=== PATIENT | male | born 1995 | race Caucasian/White ===

== ENCOUNTER 2022-08-06 16:38 | Emergency (ER) | payer OTHER ==
[2022-08-06] MEDS ORDERED: TAMSULOSIN 0.4 MG CAP.ER.24H PO STA (19:36)
[2022-08-06] MEDS ORDERED: MORPHINE SULFATE 4 MG/ML SYRINGE IV STA (19:36)
[2022-08-06] MEDS ORDERED: KETOROLAC 15 MG/ML 1 ML VIAL IVP STA (19:36)
[2022-08-06] MEDS ORDERED: ONDANSETRON 4 MG/2 ML VIAL IVP STA (19:36)
--- NOTE | 2022-08-06 19:38 | ED ---
Abdominal Pain HPI - General Chief Complaint: Abdominal Pain Stated Complaint: Kidney Stone Time Seen by Provider: 08/06/22 19:26 Source: patient, RN notes reviewed Mode of arrival: ambulatory Limitations: no limitations - History of Present Illness Initial Comments: Patient presents with left flank pain for 2 days. Patient was seen at [facility] in [facility] yesterday and diagnosed with a kidney stone. Patient states the pain became worse today. Patient states that he was told that the stone was too big to pass. He was told to follow-up with his regular physician today. Patient made a call to his primary and was sent here for evaluation. He denies any hematuria. No fever. He did have some nausea and vomiting., Sharp left flank pain with no alleviating or exacerbating factors. Waxes and wanes in intensity. No headache, no fever or chills, no changes in vision or hearing, no sore throat or difficulty with speech, no neck pain, no chest pain or shortness of breath, no abdominal pain, no nausea or vomiting, no changes in urination or bowel movements, no numbness or tingling, no extremity pain, no skin rashes or le sions. Past medical, surgical, social, and family history reviewed. MD Complaint: flank pain - Related Data Previous Rx's Medication Instructions Recorded HYDROcodone/APAP 5-325MG [[place] 1 tab PO Q6HR PRN 3 Days #12 tab 08/06/22 5-325] Tamsulosin [Flomax] 0.4 mg PO DAILY #7 cap 08/06/22 Allergies Allergy/AdvReac Type Severity Reaction Status Date / Time adhesive tape Allergy Rash/Hives Verified 08/06/22 17:06 Review of Systems ROS Statement: Those systems with pertinent positive or pertinent negative responses have been documented in the HPI. ROS Other: All systems not noted in ROS Statement are negative. Past Medical History Past Medical History: No Reported History History of Any Multi-Drug Resistant Organisms: None Reported Past Surgical History: Adenoidectomy, Orthopedic Surgery, Tonsillectomy Past Psychological History: No Psychological Hx Reported Smoking Status: Vaper Past Alcohol Use History: None Reported Past Drug Use History: None Reported General Exam Limitations: no limitations General appearance: alert, in no apparent distress Head exam: Present: atraumatic, normocephalic, normal inspection Eye exam: Present: normal appearance, PERRL, EOMI. Absent: scleral icterus, conjunctival injection, periorbital swelling ENT exam: Present: normal exam, mucous membranes moist Neck exam: Present: normal inspection. Absent: tenderness, meningismus, lymphadenopathy Respiratory exam: Present: normal lung sounds bilaterally. Absent: respiratory distress, wheezes, rales, rhonchi, stridor Cardiovascular Exam: Present: regular rate, normal rhythm, normal heart sounds. Absent: systolic murmur, diastolic murmur, rubs, gallop, clicks GI/Abdominal exam: Present: soft, normal bowel sounds. Absent: distended, tenderness, guarding, rebound, rigid Extremities exam: Present: normal inspection, full ROM, normal capillary refill. Absent: tenderness, pedal edema, joint swelling, calf tenderness Back exam: Present: normal inspection, CVA tenderness (L). Absent: CVA tenderness (R) Neurological exam: Present: alert, oriented X3, CN II-XII intact Psychiatric exam: Present: normal affect, normal mood Skin exam: Present: warm, dry, intact, normal color. Absent: rash Course Vital Signs 08/06/22 17:03 Temperature 98 F Pulse Rate 64 Respiratory 20 Rate Blood Pressure 132/75 O2 Sat by Pulse 100 Oximetry - Reevaluation(s) Reevaluation #1: 08/06/22 20:35 Review of outside records. Medical Decision Making - Medical Decision Making Given the patient's diagnosis at the other facility, renal colic is likely. We'll obtain records. Records from [facility] reviewed. Computed tomography scan shows a 6.2 mm calculus at the left UPJ with mild hydronephrosis. Patient's renal function is normal.Patient counseled on all findings. Patient given follow-up with urology. Patient strain urine. Patient was given a short course of [place]. Did add in Flomax. Patient Sarath has ketorolac at home from the previous facility. KUB read by me reveals no evidence of acute pathology. Concur with radiology interpretation. Patient was told to return to the ER for any signs or symptoms worsen. Told to return immediately if any other problems arise. All questions answered. Treat ment plan discussed. Patient in agreement Every effort has been made to ensure accuracy of this dictation. However, due to the limitations of electronic medical records and dictation devices, errors in charting still occur. Sales Promotion Representative Dr. Damer - Lab Data Result diagrams: 08/06/22 20:52 08/06/22 20:52 Lab Results 08/06/22 08/06/22 08/06/22 Range/Units 20:52 20:52 20:52 WBC 7.8 (3.8-10.6) k/uL RBC 4.62 (4.30-5.90) m/uL Hgb 13.6 (13.0-17.5) gm/dL Hct 41.0 (39.0-53.0) % MCV 88.8 (80.0-100.0) fL MCH 29.5 (25.0-35.0) pg MCHC 33.2 (31.0-37.0) g/dL RDW 13.1 (11.5-15.5) % Plt Count 370 (150-450) k/uL MPV 7.4 Neutrophils % 57 % Lymphocytes % 30 % Monocytes % 5 % Eosinophils % 4 % Basophils % 1 % Neutrophils # 4.5 (1.3-7.7) k/uL Lymphocytes # 2.3 (1.0-4.8) k/uL Monocytes # 0.4 (0-1.0) k/uL Eosinophils # 0.3 (0-0.7) k/uL Basophils # 0.0 (0-0.2) k/uL Sodium 140 (137-145) mmol/L Potassium 4.2 (3.5-5.1) mmol/L Chloride 106 (98-107) mmol/L Carbon Dioxide 28 (22-30) mmol/L Anion Gap 6 mmol/L BUN 14 (9-20) mg/dL Creatinine 0.85 (0.66-1.25) mg/dL Est GFR (CKD-EPI)AfAm >90 (>60 ml/min/1.73 sqM) Est GFR (CKD-EPI)NonAf >90 (>60 ml/min/1.73 sqM) Glucose 82 (74-99) mg/dL Calcium 9.5 (8.4-10.2) mg/dL Total Bilirubin 0.6 (0.2-1.3) mg/dL AST 43 (17-59) U/L ALT 56 H (4-49) U/L Alkaline Phosphatase 52 (38-126) U/L Total Protein 6.7 (6.3-8.2) g/dL Albumin 4.3 (3.5-5.0) g/dL Urine Color Yellow Urine Appearance Clear (Clear) Urine pH 5.5 (5.0-8.0) Ur Specific [place] 1.017 (1.001-1.035) Urine Protein Trace H (Negative) Urine Glucose (UA) Negative (Negative) Urine Ketones Negative (Negative) Urine Blood Large H (Negative) Urine Nitrite Negative (Negative) Urine Bilirubin Negative (Negative) Urine Urobilinogen <2.0 (<2.0) mg/dL Ur Leukocyte Esterase Negative (Negative) Urine RBC >182 H (0-5) /hpf Urine WBC 3 (0-5) /hpf Ur Squamous Epith Cells <1 (0-4) /hpf Hyaline Casts 1 (0-2) /lpf Urine Mucus Few H (None) /hpf - Radiology Data Radiology results: report reviewed, image reviewed Disposition Clinical Impression: Ureterolithiasis, Renal colic on left side Disposition: HOME SELF-CARE Condition: Good Additional Instructions: Follow-up with your regular physician as directed. Return to the ER immediately if any symptoms worsen, new symptoms arise, or any other problems develop. Strain urine as directed. Call at 8 AM in the morning to schedule an appointment with the on-call urologist. Make sure you tell them that you have a 6.2 mm kidney stone Is patient prescribed a controlled substance at d/c from ED?: No Referrals: Truman Steinberg MD [STAFF PHYSICIAN] - 1-2 days Time of Disposition: 22:36
[2022-08-06 21:07] LABS: Basophils % (A) 1 %; Eosinophils # (A) 0.3 k/uL (0-0.7); Eosinophils % (A) 4 %; HGB 13.6 gm/dL (13.0-17.5); Lymphocytes # (A) 2.3 k/uL (1.0-4.8); Lymphocytes % (A) 30 %; MCH 29.5 pg (25.0-35.0); MCHC 33.2 g/dL (31.0-37.0); MCV 88.8 fL (80.0-100.0); Mean Platelet Volume 7.4; Monocytes # (A) 0.4 k/uL (0-1.0); Monocytes % (A) 5 %; Neutrophils # (A) 4.5 k/uL (1.3-7.7); Neutrophils % (A) 57 %; Platelet Count 370 k/uL (150-450); RBC 4.62 m/uL (4.30-5.90); RDW 13.1 % (11.5-15.5); WBC 7.8 k/uL (3.8-10.6)
[2022-08-06 21:13] LABS: ALT 56 U/L (4-49); AST 43 U/L (17-59); African American GFR (CKD) >90 (>60 ml/min/1.73 sqM); Albumin 4.3 g/dL (3.5-5.0); Alkaline Phosphatase 52 U/L (38-126); Anion Gap 6 mmol/L; Blood Urea Nitrogen 14 mg/dL (9-20); Calcium 9.5 mg/dL (8.4-10.2); Carbon Dioxide 28 mmol/L (22-30); Chloride 106 mmol/L (98-107); Glucose 82 mg/dL (74-99); Non-African American GFR(CKD) >90 (>60 ml/min/1.73 sqM); Potassium 4.2 mmol/L (3.5-5.1); Sodium 140 mmol/L (137-145); Total Bilirubin 0.6 mg/dL (0.2-1.3); Total Protein 6.7 g/dL (6.3-8.2)
[2022-08-06 21:15] LABS: Appearance,Urine Clear (Clear); Bilirubin,Urine Negative (Negative); Blood,Urine Large (Negative); Color,Urine Yellow; Glucose,Urine (UA) Negative (Negative); Hyaline Casts,Urine 1 /lpf (0-2); Ketones,Urine Negative (Negative); Leukocyte Esterase,Urine Negative (Negative); Mucus,Urine Few /hpf; Nitrite,Urine Negative (Negative); PH, Urine 5.5 (5.0-8.0); Protein,Urine Trace (Negative); RBC,Urine >182 /hpf (0-5); Specific Gravity,Urine 1.017 (1.001-1.035); Squamous Epithelial Cell,Urine <1 /hpf (0-4); Urobilinogen,Urine <2.0 mg/dL (<2.0); WBC,Urine 3 /hpf (0-5)
--- NOTE | 2022-08-06 21:19 | XR ---
EXAMINATION TYPE: XR KUB DATE OF EXAM: 08/06/2022 8:11 PM INDICATION: Patient age:Male; 26 years old; Reason for study: abdominal pain; COMPARISON: None. TECHNIQUE: One radiographic view of the abdomen was obtained. FINDINGS: The bowel gas pattern is nonspecific without dilated loops of small or large bowel. There i s no evidence for organomegaly or pneumoperitoneum. The osseous structures are intact. No abnormal calcifications are present. Fecal material and gas are demonstrated throughout the colon and rectum. IMPRESSION: Nonspecific bowel gas pattern without radiographic evidence for acute process.
[2022-08-06 22:58] VITALS: BP 148/79; PULSE 88; RESP 18; TEMP 98.7
== END 2022-08-06 23:29 | disposition home or self-care (01) ==
LOC: EC 16:38
DX: N13.2 Hydronephrosis with renal and ureteral calculous obstruction (principal); F17.290 Nicotine dependence, other tobacco product, uncomplicated; Z88.8 Allergy status to other drugs, medicaments and biological substances
CPT/HCPCS: 36415; 80053; 85025; 81001; 74018; 99284; 96374; 96375; J2270; J2405; J1885

== ENCOUNTER → 2022-08-09 | Outpatient (CLI) | payer OTHER ==
--- NOTE | 2022-08-09 12:38 | XR ---
EXAMINATION TYPE: XR KUB DATE OF EXAM: 08/09/2022 Comparison: 08/06/2022 Clinical History: 26-year-old male N20.0, N20.1 Findings: Supine imaging limited for assessment of free intraperitoneal air. No dilated small bowel loops. Mild to moderate stool with air and stool extending throughout the colon distally to the rectum. There is a 4 mm calcification seen medial to the left renal shadow. Impression: 1. Mild to moderate stool burden. 2. Possible 4 mm calculus in the left renal collecting system or upper urinary tract.
== END | disposition home or self-care (01) ==
LOC: RADXRMAIN 09:48
PROVIDERS: ATTEND Urology
DX: N20.2 Calculus of kidney with calculus of ureter (principal); R19.5 Other fecal abnormalities
CPT/HCPCS: 74018

== ENCOUNTER 2022-08-15 05:58 | Day surgery (SDC) | payer OTHER ==
[2022-08-13 09:56] VITALS: BMI 35.6
--- NOTE | 2022-08-14 13:53 | P.GSHP ---
History of Present Illness H&P Date: 08/14/22 26 yo with a several day history of an obstructing 4-5 mm proximla ureeral stone. He has persistent colic. We discussed treatment types and he comes for a left ureterscopy with laser lithotripsy - Constitutional Constitutional: Denies chills, Denies fever - EENT Eyes: denies blurred vision, denies pain Ears, nose, mouth and throat: Denies headache, Denies sore throat - Cardiovascular Cardiovascular: Denies chest pain, Denies shortness of breath - Respiratory Respiratory: Denies cough, Denies 7 - Gastrointestinal Gastrointestinal: Denies abdominal pain, Denies diarrhea, Denies nausea, Denies vomiting - Genitourinary (Female) Genitourinary: Denies dysuria, Denies hematuria - Genitourinary (Male) Genitourinary: Denies dysuria, Denies hematuria - Musculoskeletal Musculoskeletal: Denies myalgias - Integumentary Integumentary: Denies pruritus, Denies rash - Neurological Neurological: Denies numbness, Denies weakness - Psychiatric Psychiatric: Denies anxiety, Denies depression - Endocrine Endocrine: Denies fatigue, Denies weight change Past Medical History Past Medical History: No Reported History Additional Past Medical History / Comment(s): kidney stones History of Any Multi-Drug Resistant Organisms: None Reported Past Surgical History: Adenoidectomy, Orthopedic Surgery, Tonsillectomy Additional Past Surgical History / Comment(s): LT ELBOW SX Past Anesthesia/Blood Transfusion Reactions: No Reported Reaction Smoking Status: Vaper - Past Family History Mother Family Medical History: No Reported History Medications and Allergies Home Medications Medication Instructions Recorded Confirmed Type HYDROcodone/APAP 5-325MG [[place] 1 tab PO Q6HR PRN 3 Days #12 tab 08/06/22 08/13/22 Rx 5-325] Tamsulosin [Flomax] 0.4 mg PO DAILY #7 cap 08/06/22 08/13/22 Rx Allergies Allergy/AdvReac Type Severity Reaction Status Date / Time adhesive tape Allergy Rash/Hives Verified 08/13/22 09:46 Surgical - Exam - General well developed, well nourished, moderate distress - Eyes PERRL - ENT no hearing loss - Neck no masses - Respiratory normal expansion, normal respiratory effort - Cardiovascular Rhythm: regular - Abdomen Abdomen: soft, non tender - Genitourinary normal penis with no external lesions, testicles present - Integumentary no rash, no growths - Neurologic normal coordination, normal sensation - Musculoskeletal normal gait, normal posture - Psychiatric oriented to time, oriented to person, oriented to place, speech is normal, memory intact Results - Imaging Abdominal x-ray: report reviewed, image reviewed CT scan - abdomen: report reviewed, image reviewed CT scan - pelvis: report reviewed, image reviewed Assessment and Plan Assessment: Impression: left ureteral stone with colic Plan: left ureteroscopy with laser lithotripsy
[~2022-08-15 05:58] MED LIST: ceFAZolin 3 GM in SODIUM CHLORIDE 0.9% 100 ML IVPB PRN
--- NOTE | 2022-08-15 06:26 | XR ---
EXAMINATION TYPE: XR KUB DATE OF EXAM: 08/15/2022 COMPARISON: 08/09/2022 HISTORY: Ureteral calculus TECHNIQUE: FINDINGS: 2 views were obtained that show a 4 mm calculus over the left renal pelvis and not changed in position compared to last exam. Bowel gas pattern is normal. No sign of intestinal obstruction or pneumoperitoneum. Fecal pattern is normal. IMPRESSION: Left renal calculus not changed in position compared to last exam.
[2022-08-15] MEDS ORDERED: DEXAMETHASONE SOD PHOSPHATE 4 MG/ML 1 ML VIAL IV ONE (06:41)
[2022-08-15] MEDS ORDERED: SCOPOLAMINE 1 MG/72 HR PATCH TRANSDERM ONE (06:41)
[2022-08-15] MEDS ORDERED: ONDANSETRON 4 MG/2 ML VIAL IVP ONE ×2 (06:41→11:00)
[2022-08-15] MEDS ORDERED: LACTATED RINGERS 1,000 ML IV SCH (06:41)
[2022-08-15] MEDS ORDERED: MIDAZOLAM 2 MG/2 ML VIAL IV PRN (06:41)
[2022-08-15] MEDS ORDERED: fentaNYL (PF) 50 MCG/ML 2 ML AMP ONE (07:54)
[2022-08-15] MEDS ORDERED: LIDOCAINE 2% INJ 20 MG/ML (2 ML VIAL) ONE (07:54)
[2022-08-15] MEDS ORDERED: MIDAZOLAM 2 MG/2 ML VIAL ONE (07:54)
[2022-08-15] MEDS ORDERED: ROCURONIUM 10 MG/ML (5 ML VIAL) IV ONE (07:54)
[2022-08-15] MEDS ORDERED: SUCCINYLCHOLINE CHLORIDE 200 MG/10 ML VIAL IV ONE (07:54)
[2022-08-15] MEDS ORDERED: PROPOFOL 10 MG/ML 20 ML VIAL IV ONE (07:54)
[2022-08-15] MEDS ORDERED: IOPAMIDOL-370 50ML BTL IRRIGATION ONE (08:29)
[2022-08-15] MEDS ORDERED: IOPAMIDOL-370 50ML BTL MISCELLANE ONE (08:29)
--- NOTE | 2022-08-15 09:04 | P.OP ---
Date of Procedure: 08/15/22 Preoperative Diagnosis: Left ureteral calculus with obstruction Postoperative Diagnosis: Same Procedure(s) Performed: Cystoscopy, left ureteroscopy with laser lithotripsy Anesthesia: JAYNE Surgeon: Rakesh Braxton Estimated Blood Loss (ml): 0 Pathology: other (Stone) Condition: stable Disposition: PACU Indications for Procedure: Patient is 26. He has a 4 mm left UPJ stone causing obstruction and persistent pain. He comes for ureteroscopy with laser lithotripsy on the left side Description of Procedure: The patient is brought to the operating suite. He is given a general anesthetic. He's placed in lithotomy position with a sterile prep and drape. Urethra is dilated to 28-Italian with Stephen sounds. Under direct vision the 21-Italian cystoscope Foroblique lenses introduced in urethra. Anterior urethra is normal. The prostate is not obstructing. The bladder jameson unremarkable. The ureteral orifices are unremarkable. The left ureteral orifice is intubated with an 035 wire. I attempted to pass a 74-05-[id number] reentry sheath over the wi re but I am unable to do so. I then over the wire pass a 5-15-Italian dilating balloon and dilated the left ureteral orifice. I then pass a reentry sheath up into the proximal ureter. I removed the inner sheath and the wire pass a flexible ureteroscope up to the left UPJ stone. With the 275 laser probe the stone was broken into tiny pieces. I then stone basket the largest pieces and sent to pathology. I looked throughout the collecting system and see no remaining stone. I do a pullout left ureteroscopy to make sure no remaining stone or significant edema and there is none. I removed the cystoscope drain the bladder the patient is awakened and returned recovery room good condition. He'll be discharged home upon recovery and found the office in one week. Stone is been sent to pathology.
[2022-08-15 09:09] VITALS: TEMP 97.1
--- NOTE | 2022-08-15 09:17 | FL ---
Intraoperative/procedural fluoroscopic services were provided. Total fluoroscopy time is 24 seconds w ith a total of 2 submitted images to PACS. Please see the operative/procedural note for further detai ls.
[2022-08-15] MEDS ORDERED: LACTATED RINGERS 1,000 ML IV ONE ×2 (09:28→10:00)
[2022-08-15] MEDS ORDERED: KETOROLAC 15 MG/ML 1 ML VIAL ONE (10:00)
[2022-08-15] MEDS ORDERED: HYDROcodone/APAP 7.5-325MG 1 EACH TAB ONE (10:01)
[2022-08-15] MEDS ORDERED: KETOROLAC 15 MG/ML 1 ML VIAL IVP ONE ×2 (10:02)
[2022-08-15] MEDS ORDERED: HYDROcodone/APAP 7.5-325MG 1 EACH TAB PO ONE ×2 (10:03)
[2022-08-15] MEDS ORDERED: ONDANSETRON 4 MG/2 ML VIAL ONE (10:59)
[2022-08-15] MEDS: HYDROmorphone 0.5 MG/0.5 ML SYRINGE IVP PRN ×2 (11:35→12:38)
[2022-08-15 13:41] VITALS: BP 151/85; PULSE 75; RESP 16
== END 2022-08-15 13:42 | disposition home or self-care (01) ==
LOC: OR 05:58
PROVIDERS: ATTEND Urology
DX: N20.1 Calculus of ureter (principal); I10 Essential (primary) hypertension; F17.200 Nicotine dependence, unspecified, uncomplicated; M54.9 Dorsalgia, unspecified; K21.9 Gastro-esophageal reflux disease without esophagitis; Z90.89 Acquired absence of other organs; Z98.890 Other specified postprocedural states; Z79.899 Other long term (current) drug therapy; Z91.040 Latex allergy status; Z87.442 Personal history of urinary calculi
CPT/HCPCS: 52353; 82365; 74420; 74018; C1769; J2250; J0330; J1100; J0690; J2405; J3010; J1885; J2704; J1170; Q9967; J2001